=== PATIENT | male | born 1945 | race Caucasian/White ===

== ENCOUNTER 2017-01-29 02:09 | Emergency (ER) | payer MEDICARE ==
[2017-01-29] MEDS ORDERED: NS 0.9% 1000 ML* 1,000 ML IV ONE (02:44)
--- NOTE | 2017-01-29 03:14 | ED ---
Jeffrey Lauren SooYoung, scribed for Jose Leroy MD on 01/29/17 at 0314 . Abdominal Pain/Male - HPI Summary HPI Summary: A 71 y/o M presents to ED with c/o sharp abd pain onset two nights ago. Associated sx: fever of 101.5 F, n/d, black/tarry stools onset two days ago, bright red melena today. He states feeling better yesterday, he was able to go to work, but abd pain returned today. Pt took Pepto and Immodium. He notes have a similar occurrence about 25 years ago, and was admitted, but cause is unknown , possibly due to raw hamburger. He did eat hamburger three days ago. also ate hamburger, but has no symptoms. Pt's last colonoscopy was approx. 10 years ago. Pt has been under recent stress. Took tylenol at 1500. Had castro grupo SOLAR ENERGY TECHNICIAN. - History of Current Complaint Chief Complaint: EDAbdPain Stated Complaint: STOMACH CRAMPS/BLOODY STOOL Time Seen by Provider: 01/29/17 02:36 Hx Obtained From: Patient, Family/Stage Builder Onset/Duration: Gradual Onset, Lasting Days, Still Present Timing: Constant Severity Initially: Moderate Severity Currently: Moderate Pain Intensity: 8 Pain Scale Used: 0-10 Numeric Location: Diffuse Associated Signs And Symptoms: Positive: Fever, Blood in Stool, Nausea, Diarrhea , Other - pos: tarry stools. Negative: Vomiting - Allergies/Home Medications Allergies/Adverse Reactions: Allergies Allergy/AdvReac Type Severity Reaction Status Date / Time No Known Allergies Allergy Verified 04/10/15 10:03 PMH/Surg Hx/FS Hx/Imm Hx Previously Healthy: No Endocrine/Hematology History: Reports: Hx Thyroid Disease - HYPO Cardiovascular History: Reports: Hx Hypertension History: Reports: Hx Kidney Stones - BILAT Musculoskeletal History: Reports: Hx Arthritis - LEFT HIP Sensory History: Reports: Hx Contacts or Glasses - READING GLASSES Denies: Hx Hearing Aid Opthamlomology History: Reports: Hx Contacts or Glasses - READING GLASSES - Surgical History Surgery Procedure, Year, and Place: LITHOTRIPSY X3 2002, 2005, 2007. CYSTO 2011 [facility] [place]. HERNIA REPAIR RIGHT 1970. TONSILLECTOMY 1971. BASAL CELL REMOVAL LEFT HAND Hx Anesthesia Reactions: No Infectious Disease History: No Infectious Disease History: Denies: Traveled Outside the [place] in Last 30 Days - Family History Known Family History: Positive: Other - neg: anaesthesia reaction - Social History Occupation: Employed Full-time Lives: With Family Alcohol Use: Daily Alcohol Amount: 1 GLASS/WINE Hx Substance Use: No Substance Use Type: Reports: None Hx Tobacco Use: Yes Smoking Status (MU): Former Smoker Type: Pipe Amount Used/How Often: FORMER PIPE SMOKER Have You Smoked in the Last Year: No Review of Systems Positive: Fever Positive: Abdominal Pain, Diarrhea, Nausea, Other - pos: tarry stools; melena. Negative: Vomiting All Other Systems Reviewed And Are Negative: Yes Physical Exam Triage Information Reviewed: Yes Vital Signs On Initial Exam: Initial Vitals Temp Pulse Resp BP Pulse Ox 101 F 86 18 153/67 96 01/29/17 02:11 01/29/17 02:11 01/29/17 02:11 01/29/17 02:11 01/29/17 02:11 Vital Signs Reviewed: Yes Appearance: Positive: Well-Appearing, Pain Distress - mild discomfort Skin: Positive: Warm Head/Face: Positive: Normal Head/Face Inspection Eyes: Positive: KAYLA ENT: Positive: Hearing grossly normal Neck: Positive: Supple Respiratory/Lung Sounds: Positive: Breath Sounds Present Cardiovascular: Positive: RRR Abdomen Description: Positive: Soft, Other: - mild diffuse lower abd tendserness. Negative: No Organomegaly, Distended, Guarding Bowel Sounds: Positive: Present Musculoskeletal: Positive: Strength/ROM Intact Neurological: Positive: Alert, Oriented to Person Place, Time Psychiatric: Positive: Affect/Mood Appropriate Diagnostics - Vital Signs Vital Signs Temp Pulse Resp BP Pulse Ox 01/29/17 02:11 101 F 86 18 153/67 96 - Laboratory Result Diagrams: 01/29/17 03:00 01/29/17 03:00 Lab Statement: Any lab studies that have been ordered have been reviewed, and results considered in the medical decision making process. - CT ABD/PEL CT CT Interpretation: Positive (See Comments) - IMPRESSION: Findings consistent with colitis involving the ascending and transverse colon predominantly with questionable involvement of the terminal ileum. These findings are consistent with ileocolitis. CT Interpretation Completed By: Radiologist Re-Evaluation - Re-Evaluation 1 Re-Evaluation Time: 05:16 Change: Improved Comment: Discussing lab and CT results with pt. Abdominal Pain Fem Course/Dx - Course Course Of Treatment: Pt is a 71 y/o M presenting with sharp abd pain onset two nights ago. Associated sx: fever of 101.5 F, n/d, black/tarry stools onset two days ago, bright red melena today. He states feeling better yesterday, he was able to go to work, but abd pain returned today. Pt took Pepto and Immodium. He notes have a similar occurrence about 25 years ago, and was admitted, but cause is unknown, possibly due to raw hamburger. He did eat hamburger three days ago. also ate hamburger, but has no symptoms. Pt's last colonoscopy was approx. 10 years ago. Pt has been under recent stress. Took tylenol at 1500. Had castro grupo SOLAR ENERGY TECHNICIAN. Pt given fuids in ED. Lactic acid is 2.8. INR is 1.13. CRP is 29.04. UA is nml except 1+ blood. A/P CT shows "Findings consistent with colitis involving the ascending and transverse colon predominantly with questionable involvement of the terminal ileum. These findings are consistent with ileocolitis.". Will D/C pt home with Imodium to f/u with GI. - Diagnoses Provider Diagnoses: Colitis Discharge - Discharge Plan Condition: Improved Disposition: HOME Prescriptions: Loperamide CAP* [Imodium CAP*] 2 mg PO Q4H #20 cap Patient Education Materials: Loperamide (By mouth), Colitis (ED) Referrals: Carmelo Mckeon MD [Primary Care Provider] - Sven Banda MD [Medical Doctor] - 1 Day Additional Instructions: Follow up with Dr. Banda, GI, today. Please return to the ED if you experience new or worsening symptoms. The documentation as recorded by the Jeffrey thompson SooYoung accurately reflects the service I personally performed and the decisions made by me, Jose Leroy MD.
[2017-01-29 03:16] LABS: Hematocrit 35 % (42-52); Hemoglobin 12.3 g/dl (14.0-18.0); Mean Corpuscular HGB Conc 35 g/dl (31-36); Mean Corpuscular Hemoglobin 36 pg (27-31); Mean Corpuscular Volume 101 fL (80-94); Mean Platelet Volume 7 um3 (7.4-10.4); Red Blood Count 3.48 10^6/ul (4.0-5.4); Red Cell Distribution Width 14 % (10.5-15); White Blood Count 7.4 10^3/ul (3.5-10.8)
[2017-01-29 03:23] LABS: Add Diff/Slide Review? Slide Review Added; Comments Flag Yes
[2017-01-29 03:27] LABS: Albumin 4.2 g/dL (3.2-5.2); BUN/Creatinine Ratio 19.4 (8-20); C Reactive Protein 29.04 mg/L (< 5.00); Calcium 8.7 mg/dL (8.6-10.3); EGFR African American 86.7 (>60); EGFR Non-African American 67.4 (>60); Globulin 2.2 g/dL (2-4); Magnesium 1.8 mg/dL (1.9-2.7); Potassium 3.3 mmol/L (3.5-5.0); Total Bilirubin 1.1 mg/dL (0.2-1.0); Total Protein 6.4 g/dL (6.4-8.9)
[2017-01-29] MEDS ORDERED: Iohexol 300* (CONTRAST) 10 ML SDV IV ONE (04:11)
[2017-01-29 04:28] VITALS: BP 130/61
[2017-01-29 04:33] LABS: Urine Bacteria Absent (Absent); Urine Bilirubin Negative (Negative); Urine Glucose Negative (Negative); Urine Nitrite Negative (Negative)
--- NOTE | 2017-01-29 08:02 | RAD ---
INDICATION: Abdominal pain. GI bleed. COMPARISON: CT urogram a 2010 TECHNIQUE: Axial source images were obtained from the hemidiaphragms to the symphysis pubis following administration of oral and intravenous contrast. 115 mL Omnipaque 300 was utilized. Coronal and sagittal reconstructed images were acquired. Lung bases: The lung bases are clear. Liver: The liver is normal in size. There are no masses. There is no ductal dilatation. Gallbladder: There are no calcified gallstones. There is no evidence of wall thickening or pericholecystic fluid. Spleen: The spleen is normal in size. There are no masses. Pancreas: There is no focal pancreatic mass or ductal dilatation. Adrenal glands: There is no evidence of adrenal mass. Kidneys: The kidneys are normal in size and position. There are prompt nephrograms and there is prompt excretion bilaterally. There are no renal parenchymal masses. There are nonobstructive renal calculi and lower poles of each kidney. Adenopathy: There is no evidence of adenopathy by size criteria. Fluid collections: Mild stranding of the mesenteric fat most prominent near the hepatic flexure. Vessels:There are no significant atherosclerotic changes involving the aorta. There is no focal aneurysm. The iliac vessels are normal in caliber. The IVC appears normal. GI tract: The upper GI tract is unremarkable with exception that there may be mild mucosal thickening of the terminal ileum. There is mild mucosal thickening of the descending and transverse colon. There is no significant mucosal thickening of the descending or sigmoid colon. There are scattered diverticula of the sigmoid colon but there is no CT evidence of diverticulitis. There is no obstruction. There is no pneumatosis.. Pelvic organs: Limited evaluation due to beam hardening artifact from left hip arthroplasty. Bladder: Mildly limited evaluation due to beam hardening artifact from left hip arthroplasty. No abnormalities are identified.. Abdominal and pelvic soft tissues: Small bilateral fat-containing inguinal hernias.. Osseous structures: There are no acute osseous findings. Left hip arthroplasty. Moderate degenerative disease L5-S1. Moderate spurring of the lower thoracic spine. Other: None IMPRESSION: 1. SUSPECT MILD ILEOCOLITIS. 2. BILATERAL NONOBSTRUCTIVE RENAL CALCULI.
== END 2017-01-29 05:44 | disposition home or self-care (01) ==
LOC: ED 02:09
DX: K52.9 Noninfective gastroenteritis and colitis, unspecified (principal); R50.9 Fever, unspecified; K92.1 Melena; R11.0 Nausea; R19.7 Diarrhea, unspecified; Z87.891 Personal history of nicotine dependence
CPT/HCPCS: 36415; 74177; 80053; 81003; 81015; 83605; 83690; 83735; 85025; 85610; 86140; 99283; Q9967

== ENCOUNTER 2017-01-29 11:20 | Inpatient (IN) | payer MEDICARE ==
[2017-01-29] MEDS ORDERED: NS 0.9% 1000 ML* 2,000 ML IV ONE (12:39)
[2017-01-29] MEDS ORDERED: Acetaminophen TAB* 325 MG PO ONE (13:02)
[2017-01-29 13:18] LABS: Hematocrit 33 % (42-52); Hemoglobin 11.8 g/dl (14.0-18.0); Mean Corpuscular HGB Conc 35 g/dl (31-36); Mean Corpuscular Hemoglobin 35 pg (27-31); Mean Corpuscular Volume 100 fL (80-94); Mean Platelet Volume 7 um3 (7.4-10.4); Red Blood Count 3.33 10^6/ul (4.0-5.4); Red Cell Distribution Width 14 % (10.5-15); White Blood Count 7.9 10^3/ul (3.5-10.8)
[2017-01-29 13:32] LABS: BUN/Creatinine Ratio 14.8 (8-20); C Reactive Protein 35.79 mg/L (< 5.00); Calcium 8.8 mg/dL (8.6-10.3); EGFR African American 80.6 (>60); EGFR Non-African American 62.7 (>60); Globulin 2.1 g/dL (2-4); Potassium 3.4 mmol/L (3.5-5.0); Total Bilirubin 1.5 mg/dL (0.2-1.0); Total Protein 6.1 g/dL (6.4-8.9)
[2017-01-29] MEDS ORDERED: Ondansetron INJ* 2 MG/ML VIAL IV PRN (14:45)
[2017-01-29] MEDS ORDERED: KCL 20 MEQ/100 ML IVPREMIX* 20 MEQ/100 ML BAG IV ONE (14:52)
--- NOTE | 2017-01-29 15:23 | ED ---
Denis Lauren Angela, scribed for Kevin Brown MD on 01/29/17 at 1208 . Abdominal Pain/Male - HPI Summary HPI Summary: 71 y/o male presents to the ED c/o fever, fatigue, abd pain, and diarrhea that started at 1:00 AM 2 ago on Thursday. Pt reports his pain started in the upper abdomen and now is more diffuse. He also states feeling nauseous but denies vomiting. Pt notes black stools 2 days ago with blood last night and today. He states that diarrhea started after the onset of his abd pain. Pt reports having 3 bowel movements today with quite of bit of blood. Pt notes 20 years ago he had similar symptoms from eating a hamburger, was told he had E. coli. Pt endorses light-headedness and myalgia, but denies urinary symptoms and any recent antibiotics. Per pt's , pt has been under a lot of stress recently. Pt is currently on levothyroxine, hydrochlorothiazide, loperamide, and baby ASA. - History of Current Complaint Chief Complaint: EDAbdPain Stated Complaint: SENT BY DR WALLACE Time Seen by Provider: 01/29/17 11:56 Hx Obtained From: Patient, Family/Signal Tower Director - Onset/Duration: Gradual Onset Timing: Constant Pain Intensity: 8 Location: Diffuse Radiates: No Aggravating Factor(s): Nothing Alleviating Factor(s): Nothing Associated Signs And Symptoms: Positive: Fever, Blood in Stool, Nausea, Diarrhea. Negative: Urinary Symptoms, Vomiting - Allergies/Home Medications Allergies/Adverse Reactions: Allergies Allergy/AdvReac Type Severity Reaction Status Date / Time Bee Venom Allergy Hives Verified 01/29/17 11:47 PMH/Surg Hx/FS Hx/Imm Hx Endocrine/Hematology History: Reports: Hx Thyroid Disease - HYPO Denies: Hx Diabetes Cardiovascular History: Reports: Hx Hypertension History: Reports: Hx Kidney Stones - BILAT Denies: Hx Dialysis, Hx Renal Disease Musculoskeletal History: Reports: Hx Arthritis - LEFT HIP Sensory History: Reports: Hx Contacts or Glasses - READING GLASSES Denies: Hx Hearing Aid Opthamlomology History: Reports: Hx Contacts or Glasses - READING GLASSES - Cancer History Cancer Type, 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 CYSTO 2010 [facility] [place]. HERNIA REPAIR RIGHT 1969. TONSILLECTOMY 1970. BASAL CELL REMOVAL LEFT HAND Hx Anesthesia Reactions: No Infectious Disease History: Denies: Traveled Outside the US in Last 30 Days - Family History Known Family History: Positive: Other - neg: anaesthesia reaction - Social History Alcohol Use: Daily Alcohol Amount: 1 GLASS/WINE Hx Substance Use: No Substance Use Type: Reports: None Hx Tobacco Use: Yes Smoking Status (MU): Former Smoker Type: Pipe Amount Used/How Often: FORMER PIPE SMOKER Have You Smoked in the Last Year: No Review of Systems Positive: Fever, Fatigue Positive: Abdominal Pain, Diarrhea, Nausea. Negative: Vomiting Positive: Myalgia, Other - NEGATIVE: urinary symptoms All Other Systems Reviewed And Are Negative: Yes Physical Exam - Summary Physical Exam Summary: General: mild ill-appearing, no pain distress Skin: warm, color reflects adequate perfusion, dry Head: normal Eyes: EOMI, KAYLA ENT: normal, oral mucosa dry Neck: supple, nontender Respiratory: CTA, breath sounds present Cardiovascular: RRR Abdomen: soft, mild diffuse tenderness in the abd more in the epigastric area. Bowel: hypoactive bowel sounds Musculoskeletal: normal, strength/ROM intact Neurological: normal, sensory/motor intact, A&O x3 Psychological: affect/mood appropriate Triage Information Reviewed: Yes Vital Signs On Initial Exam: Initial Vitals Temp Pulse Resp BP Pulse Ox 97.8 F 77 19 110/69 98 01/29/17 11:43 01/29/17 11:43 01/29/17 11:43 01/29/17 11:43 01/29/17 11:43 Vital Signs Reviewed: Yes Diagnostics - Vital Signs Vital Signs Temp Pulse Resp BP Pulse Ox 01/29/17 11:43 97.8 F 77 19 110/69 98 - Laboratory Lab Results: Lab Results 01/29/17 01/29/17 01/29/17 Range/Units 13:00 13:00 13:00 WBC 7.9 (3.5-10.8) 10^3/ul RBC 3.33 L (4.0-5.4) 10^6/ul Hgb 11.8 L (14.0-18.0) g/dl Hct 33 L (42-52) % MCV 100 H (80-94) fL MCH 35 H (27-31) pg MCHC 35 (31-36) g/dl RDW 14 (10.5-15) % Plt Count 173 (150-450) 10^3/ul MPV 7 L (7.4-10.4) um3 Neut % (Auto) 87.0 H (38-83) % Lymph % (Auto) 6.9 L (25-47) % Desha % (Auto) 5.9 (1-9) % Eos % (Auto) 0 (0-6) % Baso % (Auto) 0.2 (0-2) % Absolute Neuts (auto) 6.9 (1.5-7.7) 10^3/ul Absolute Lymphs (auto) 0.5 L (1.0-4.8) 10^3/ul Absolute Monos (auto) 0.5 (0-0.8) 10^3/ul Absolute Eos (auto) 0 (0-0.6) 10^3/ul Absolute Basos (auto) 0 (0-0.2) 10^3/ul Absolute Nucleated RBC 0 10^3/ul Nucleated RBC % 0 INR (Anticoag Therapy) 1.18 H (0.89-1.11) APTT 30.0 (26.0-36.3) seconds Sodium 131 L (133-145) mmol/L Potassium 3.4 L (3.5-5.0) mmol/L Chloride 101 (101-111) mmol/L Carbon Dioxide 23 (22-32) mmol/L Anion Gap 7 (2-11) mmol/L BUN 17 (6-24) mg/dL Creatinine 1.15 (0.67-1.17) mg/dL Est GFR ( Amer) 80.6 (>60) Est GFR (Non-Af Amer) 62.7 (>60) BUN/Creatinine Ratio 14.8 (8-20) Glucose 114 H (70-100) mg/dL Lactic Acid (0.5-2.0) mmol/L Calcium 8.8 (8.6-10.3) mg/dL Total Bilirubin 1.50 H (0.2-1.0) mg/dL AST 20 (13-39) U/L ALT 14 (7-52) U/L Alkaline Phosphatase 55 (34-104) U/L C-Reactive Protein 35.79 H (< 5.00) mg/L Total Protein 6.1 L (6.4-8.9) g/dL Albumin 4.0 (3.2-5.2) g/dL Globulin 2.1 (2-4) g/dL Albumin/Globulin Ratio 1.9 (1-3) Lipase 14 (11.0-82.0) U/L 01/29/17 Range/Units 13:00 WBC (3.5-10.8) 10^3/ul RBC (4.0-5.4) 10^6/ul Hgb (14.0-18.0) g/dl Hct (42-52) % MCV (80-94) fL MCH (27-31) pg MCHC (31-36) g/dl RDW (10.5-15) % Plt Count (150-450) 10^3/ul MPV (7.4-10.4) um3 Neut % (Auto) (38-83) % Lymph % (Auto) (25-47) % Desha % (Auto) (1-9) % Eos % (Auto) (0-6) % Baso % (Auto) (0-2) % Absolute Neuts (auto) (1.5-7.7) 10^3/ul Absolute Lymphs (auto) (1.0-4.8) 10^3/ul Absolute Monos (auto) (0-0.8) 10^3/ul Absolute Eos (auto) (0-0.6) 10^3/ul Absolute Basos (auto) (0-0.2) 10^3/ul Absolute Nucleated RBC 10^3/ul Nucleated RBC % INR (Anticoag Therapy) (0.89-1.11) APTT (26.0-36.3) seconds Sodium (133-145) mmol/L Potassium (3.5-5.0) mmol/L Chloride (101-111) mmol/L Carbon Dioxide (22-32) mmol/L Anion Gap (2-11) mmol/L BUN (6-24) mg/dL Creatinine (0.67-1.17) mg/dL Est GFR ( Amer) (>60) Est GFR (Non-Af Amer) (>60) BUN/Creatinine Ratio (8-20) Glucose (70-100) mg/dL Lactic Acid 1.5 (0.5-2.0) mmol/L Calcium (8.6-10.3) mg/dL Total Bilirubin (0.2-1.0) mg/dL AST (13-39) U/L ALT (7-52) U/L Alkaline Phosphatase (34-104) U/L C-Reactive Protein (< 5.00) mg/L Total Protein (6.4-8.9) g/dL Albumin (3.2-5.2) g/dL Globulin (2-4) g/dL Albumin/Globulin Ratio (1-3) Lipase (11.0-82.0) U/L Result Diagrams: 01/29/17 13:00 01/29/17 13:00 Lab Statement: Any lab studies that have been ordered have been reviewed, and results considered in the medical decision making process. Abdominal Pain Fem Course/Dx - Course Course Of Treatment: ADMIT HOSPITALIST STABLE. NO CRITICAL CARE TIME. - Diagnoses Provider Diagnoses: Colitis, Fever, Bloody diarrhea Discharge - Discharge Plan Condition: Stable Disposition: ADMITTED TO [facility] Referrals: Carmelo Wallace MD [Primary Care Provider] - The documentation as recorded by the Denis thompson Angela accurately reflects the service I personally performed and the decisions made by , Kevin Brown MD.
[2017-01-29 16:29] LABS: Urine Bacteria Absent (Absent); Urine Bilirubin Negative (Negative); Urine Glucose Negative (Negative); Urine Nitrite Negative (Negative)
[2017-01-29] MEDS: Ciprofloxacin 400MG IVPREMIX(* 400 MG/200 ML BAG IVPB SCH (16:54)
[2017-01-29] MEDS: Loperamide CAP* 2 MG PO PRN (16:57)
[2017-01-29] MEDS ORDERED: metroNIDAZOLE IV 500 MG/100ML* 500 MG/100 ML BAG IVPB SCH (17:30)
--- NOTE | 2017-01-29 18:01 | HP ---
CC: Dr. Mckeon * [facility] MEDICINE HISTORY AND PHYSICAL: DATE OF ADMISSION: 01/29/17 ATTENDING PHYSICIAN: Dr. Stephane Mccallum * (dictation provided by Kenya Cardona NP ). CHIEF COMPLAINT: Left-sided abdominal pain with dark tarry stool and bright red blood per rectum. HISTORY OF PRESENT ILLNESS: Mr. Zavala is a 71-year-old male with past medical history of hypertension and hypothyroidism who presents to the hospital today with the above complaints. He states that he began feeling unwell on Thursday morning at approximately 1 a.m. He woke suddenly with severe stabbing pain in his abdomen. He thereafter developed diarrhea that was at times black with bright red blood. On Thursday he was feeling a bit better but by that evening, he was again feeling very unwell, now with a fever of 102. He was here in the emergency room earlier today, at which time he had hemoglobin 12.3 and an abdomen and pelvis CT showing ileocolitis. The patient was discharged to home with plans to follow up with Gastroenterology. However, since returning home Mr. Zavala continued to feel quite unwell with pain, diarrhea, and fever and therefore return to the ED now. He knows of no sick contacts. He ate a hamburger the evening prior to developing these symptoms but he notes that it was well-cooked and that his (who also ate a hamburger) is not ill. He does note having a prior severe bout of diarrhea with abdominal pain from which he became quite ill, after having a rare hamburger. At this point, Mr. Zavala has the temperature as high as 102.3. He remains tender on the left side of abdomen. He has a hemoglobin of 11.8. He is not tachycardic and his blood pressure is stable. PAST MEDICAL HISTORY: 1. Hypertension. 2. Hypothyroidism. 3. Kidney stones. 4. History of infectious colitis about 10 years ago for which he was in the hospital for 1 week. 5. Last colonoscopy in 2008, negative exam. MEDICATIONS: 1. Aspirin 81 mg p.o. q.a.m. 2. Hydrochlorothiazide 25 mg p.o. q.a.m. 3. Ibuprofen 400 mg p.o. b.i.d. 4. Magnesium glycinate 250 mg p.o. daily. 5. Levothyroxine 75 mcg p.o. q.a.m. 6. Loperamide 2 mg p.o. q. 4 hours p.r.n. 7. Verapamil 180 mg p.o. q.a.m. ALLERGIES: BEE VENOM. FAMILY HISTORY: Reviewed and noncontributory. SOCIAL HISTORY: The patient is a former smoker. He quit in the . He drinks 1 glass of wine per night. He denies any drug use. He lives with his who is the healthcare proxy. REVIEW OF SYSTEMS: A 14-point review of systems was completed with Mr. Zavala today and all those not mentioned above were negative. PHYSICAL EXAMINATION GENERAL: Mr. Zavala is sitting up in the bed. He is in no acute distress. VITAL SIGNS: Temperature max today in the emergency room is 102.3, is currently 99.8, heart rate 72, respiratory rate 15, O2 saturation 96% on room air, blood pressure 124/57. LUNGS: Clear to auscultation bilaterally with no accessory muscle use and good aeration. HEART: S1 and S2. No murmur, rub, or gallop and regular. ABDOMEN: Soft. There is tenderness along the left quadrant from mid abdomen down. There is no rebound or guarding. Bowel sounds are positive. EXTREMITIES: No cyanosis or edema. NEUROLOGIC: He is alert. He is oriented x3. He moves all extremities equally. There is no facial asymmetry or focal weakness. Extraocular movements are intact. SKIN: Intact. LABORATORY DATA: WBC 7.9, hemoglobin 11.8, hematocrit 33, and platelet count 173. INR 1.18. Sodium 131, potassium 3.4, chloride 101, serum bicarbonate 23, BUN 17, creatinine 1.15, glucose 114. CRP 35.79. CT abdomen and pelvis earlier today shows an ileocolitis with mild mucosal thickening of the descending and transverse colon. ASSESSMENT: Mr. Zavala is a 71-year-old male with past medical history of hypertension and hypothyroidism who presents today to the hospital with concern for diarrhea with melena with left-sided abdominal pain as well as fever, found to have likely infectious colitis. Our plans are for observation in the hospital for the followin. Infectious colitis: The patient's imaging, fever, pain, and diarrhea are all consistent with colitis. Fortunately, his blood pressure and heart rate are stable and his kidney function is stable. He has no significant electrolyte abnormalities other than a very mild hypokalemia. Plan to treat with Cipro and Flagyl intravenously until the patient is able to take oral intake consistently. Plan to check stool studies. The patient's H and H are stable, but they have drifted down very slightly. Plan to recheck his labs in the morning unless more profound bleeding is noted. 2. Hypertension. Plan to hold hydrochlorothiazide while he is acutely ill but he will continue on his verapamil as long as his blood pressure remains stable. 3. Aspirin usage: The patient states that he has no particular indication for aspirin and specifically denies a history of coronary artery disease, transient ischemic attack, or cerebrovascular accident. Plan to hold this now in the setting of GI bleeding. 4. Hypothyroidism. Continue levothyroxine. 5. DVT prophylaxis with SCDs. 6. Code status is full code. TIME SPENT: Approximately 60 minutes were spent on the admission of this patient, more than half time spent with the patient at the bedside, performing the physical examination, and reviewing my plan of care. KENYA CARDONA NP [id number]/CPS #: [id number] JUANITA
[2017-01-29] MEDS: Acetaminophen TAB* 325 MG PO PRN (20:18)
[2017-01-29] MEDS: metroNIDAZOLE IV 500 MG/100ML* 500 MG/100 ML BAG IVPB SCH (21:32)
[2017-01-30] MEDS: Ciprofloxacin 400MG IVPREMIX(* 400 MG/200 ML BAG IVPB SCH ×2 (03:40→17:42)
[2017-01-30 04:42] LABS: Hematocrit 29 % (42-52); Hemoglobin 10.2 g/dl (14.0-18.0); Mean Corpuscular HGB Conc 35 g/dl (31-36); Mean Corpuscular Hemoglobin 35 pg (27-31); Mean Corpuscular Volume 100 fL (80-94); Mean Platelet Volume 7 um3 (7.4-10.4); Red Cell Distribution Width 14 % (10.5-15); White Blood Count 5.6 10^3/ul (3.5-10.8)
[2017-01-30 04:43] LABS: Add Diff/Slide Review? Slide Review Added; Comments Flag Yes
[2017-01-30] MEDS: metroNIDAZOLE IV 500 MG/100ML* 500 MG/100 ML BAG IVPB SCH ×3 (05:03→20:58)
[2017-01-30] MEDS: Levothyroxine TAB* 75 MCG TAB PO SCH (06:07)
[2017-01-30 06:16] LABS: Hypochromasia 1+; Immature Granulocytes 19 % (0-9); Macrocytosis 1+; Microcytosis 1+; Neutrophil % 69 % (38-83)
[2017-01-30] MEDS: Verapamil SR CAP* 180 MG PO SCH (08:22)
[2017-01-30] MEDS: Acetaminophen TAB* 325 MG PO PRN ×2 (08:22→21:30)
[2017-01-30] MEDS: Loperamide CAP* 2 MG PO PRN (08:23)
[2017-01-30 09:14] LABS: BUN/Creatinine Ratio 13.4 (8-20); Calcium 8.2 mg/dL (8.6-10.3); EGFR African American 83.1 (>60); EGFR Non-African American 64.6 (>60); Potassium 3.6 mmol/L (3.5-5.0)
--- NOTE | 2017-01-30 10:44 | PN ---
Subjective Date of Service: 01/30/17 Interval History: This is a 71 yo gentleman with HTN and hypothyroidism who presented with c/o abd pain, diarrhea and BRBPR with fever. CT indicative of likely colitis. Cdiff testing negative. Patient has been started on Cipro and Flagyl. This am he reports persistent diarrhea but improved abdominal pain. No further BRBPR. He is tolerating oral intake. No n/o n/v. Objective Active Medications: Acetaminophen (Tylenol Tab*) 650 mg PO Q6H PRN PRN Reason: pain/fever Last Admin: 01/30/17 08:22 Dose: 650 mg Ciprofloxacin/Dextrose (Cipro 400 Mg Ivpremix(*)) 400 mg in 200 mls @ 200 mls/ hr IVPB Q12H [facility] Last Admin: 01/30/17 03:40 Dose: 200 mls/hr Metronidazole/Sodium Chloride (Flagyl 500 Mg Ivpb*) 500 mg in 100 mls @ 100 mls /hr IVPB 0400,1200,2000 [facility] Last Admin: 01/30/17 05:03 Dose: 100 mls/hr Levothyroxine Sodium (Synthroid Tab*) 75 mcg PO DAILY@0600 [facility] Last Admin: 01/30/17 06:07 Dose: 75 mcg Loperamide HCl (Imodium Cap*) 2 mg PO Q4H PRN PRN Reason: DIARRHEA Last Admin: 01/30/17 08:23 Dose: 2 mg Ondansetron HCl (Zofran Inj*) 4 mg IV Q6H PRN PRN Reason: NAUSEA Last Admin: 01/30/17 08:23 Dose: 4 mg Pneumococcal Polyvalent Vaccine (Pneumococcal Vac Polyvalent*) 0.5 ml IM .ONCE ONE Stop: 01/30/17 13:01 Verapamil HCl (Calan Sr Cap*) 180 mg PO QAM [facility] Last Admin: 01/30/17 08:22 Dose: 180 mg Vital Signs: Temp Pulse Resp BP Pulse Ox 99.8 F 57 18 102/41 96 01/30/17 07:18 01/30/17 07:18 01/30/17 08:23 01/30/17 07:18 01/30/17 07:18 Appearance: Mildly ill and fatigued appearing in NAD Cardiovascular: NL Sounds; No Murmurs; No JVD, RRR Abdominal: - - mild TTP LLQ, otherwise soft and BS present Extremities: No Edema Neurological: Alert and Oriented x 3 Result Diagrams: 01/30/17 04:28 01/30/17 08:44 Additional Lab and Data: . Microbiology and Other Data: Microbiology 01/29/17 15:55 Stool Gross Appearance - Final Stool Shiga Toxin I & II - Final Negative Shiga Toxin 1 & 2 Cryptosporidium/Giardia - Final Neg Cryptosporidium/Giardia 01/29/17 15:55 Stool Gross Appearance - Final Stool C. difficile DNA Amplification - Final 027 Presumptive NEGATIVE Toxigenic C.diff NEGATIVE Stool Lactoferrin - Final Stool Occult Blood (DARA) - Final Diagnostic Imaging: CT abd/pelvis - mild ileocolitis Assess/Plan/Problems-Billing Assessment: This is a 71 yo gentleman with HTN and hypothyroidism who presented with c/o diarrhea dn abd pain with evidence of colitis on CT. - Patient Problems (1) Colitis Comment: C diff neg Symptomatic improvement with Cipro and Flagyl but still having freq diarrhea and generalized malaise Will add maintainence fluids and continue current abx (2) HTN (hypertension) Comment: Normotensive HCTZ held and verapamil cont at this time (3) Hypothyroid Comment: Cont levothyroxine (4) Full code status (5) DVT prophylaxis Comment: SCDs Chemical prophylaxis held due to GI bleeding Status and Disposition: Transition to inpatient. Anticipate poss dc home tomorrow.
[2017-01-30] MEDS ORDERED: Pneumococcal Vac Polyvalent* 0.5 ML VIAL IM ONE (13:00)
[2017-01-31] MEDS: metroNIDAZOLE IV 500 MG/100ML* 500 MG/100 ML BAG IVPB SCH (03:34)
[2017-01-31] MEDS: Ciprofloxacin 400MG IVPREMIX(* 400 MG/200 ML BAG IVPB SCH (04:56)
[2017-01-31] MEDS: Levothyroxine TAB* 75 MCG TAB PO SCH (05:00)
[2017-01-31 06:34] LABS: BUN/Creatinine Ratio 15.5 (8-20); Calcium 8.1 mg/dL (8.6-10.3); EGFR African American 91.6 (>60); EGFR Non-African American 71.2 (>60); Potassium 3.6 mmol/L (3.5-5.0)
[2017-01-31 08:12] VITALS: BP 127/66
[2017-01-31] MEDS: Verapamil SR CAP* 180 MG PO SCH (09:39)
--- NOTE | 2017-02-01 03:54 | DS ---
CC: Dr. Mckeon * DISCHARGE SUMMARY: DATE OF ADMISSION: 01/29/17 DATE OF DISCHARGE: 01/31/17 PRIMARY CARE PROVIDER: Dr. Mckeon. DISCHARGING PROVIDER: MERCEDEZ Rush SUPERVISING PHYSICIAN: Dr. Deandre Turpin * (DICTATED BY MERCEDEZ RUSH) PRIMARY DISCHARGE DIAGNOSIS: Salmonella colitis. SECONDARY DISCHARGE DIAGNOSES: 1. Hypertension. 2. Hypothyroidism. DISCHARGE MEDICATIONS: 1. Aspirin 81 mg p.o. daily. 2. Cipro 500 mg p.o. b.i.d. x5 days. 3. Hydrochlorothiazide 25 mg p.o. daily. 4. Levothyroxine 75 mcg p.o. daily. 5. Magnesium glycinate 250 mg p.o. daily. 6. Verapamil 180 mg p.o. daily. Medication change: Cipro x5 days. HOSPITAL IMAGING: CT of the abdomen and pelvis demonstrates what is interpreted as suspected mild ileocolitis. HOSPITAL COURSE: This is a 71-year-old gentleman with history of hypertension and hypothyroidism, who presented with complaints of abdominal pain and frequent watery diarrhea, initially with some blood. The patient's symptoms had started approximately 2 days prior to admission. He reported diarrhea was at times black and on at least one occasion, he noted bright red blood. He had no associated nausea or vomiting but reduced oral intake. At the time of admission, he had no leukocytosis but was febrile in the emergency department with maximum temperature of 102.3 degrees Fahrenheit. He had a CT scan completed earlier in the day, which demonstrated findings consistent with mild colitis and the patient was empirically started on Cipro and Flagyl. Stool sample was subsequently collected, which was negative for C. diff but eventually grew salmonella on culture. The patient's abdominal discomfort improved and his frequency of diarrhea improved and he was able to tolerate enough oral intake to keep up with his losses from diarrhea. He was subsequently discharged to home. DISPOSITION AND FOLLOWUP PLAN: The patient is being discharged to home. Recommended an additional 5 days of Cipro. Recommended maintaining a soft bland diet and holding off on resuming his hydrochlorothiazide until his diarrhea has completely resumed and the same recommendations for his ibuprofen. The patient should follow up with his primary care provider within the next week to ensure full resolution of symptoms. MERCEDEZ RUSH [id number]/[facility] #: [id number] JUANITA
== END 2017-01-31 10:40 | disposition home or self-care (01) | DRG 373 ==
LOC: ED 11:20 → MEDTELE 14:43 → OBSVTOIN 01-30 10:57
PROVIDERS: ADMIT Internal Medicine; ATTEND Internal Medicine
DX: A02.0 Salmonella enteritis (principal); I10 Essential (primary) hypertension; E03.9 Hypothyroidism, unspecified; N20.0 Calculus of kidney; Z79.82 Long term (current) use of aspirin; Z79.1 Long term (current) use of non-steroidal anti-inflammatories (NSAID); Z79.899 Other long term (current) drug therapy; Z91.030 Bee allergy status; Z87.891 Personal history of nicotine dependence; E87.6 Hypokalemia
CPT/HCPCS: 36415; 74177; 80048; 80053; 81003; 81015; 82270; 83605; 83630; 83690; 83735; 84484; 85025; 85610; 85730; 86140; 87040; 87045; 87046; 87077; 87328; 87329; 87493; 87899; 93005; 99283; A9270-GY; G0378; J0744; J2405; J3480; Q9967

== ENCOUNTER 2017-05-11 08:50 | Day surgery (SDC) | payer MEDICARE ==
--- NOTE | 2017-05-08 09:27 | HP ---
CC: Dr. Carmelo Mckeon * ADMITTING HISTORY AND PHYSICAL: DATE OF ADMISSION: 05/11/17 AGE: 71 years, male. ADMITTING DIAGNOSIS: Bilateral renal calculi. PLANNED PROCEDURE: Shockwave lithotripsy of renal calculi (side to be determined based on preoperative x-ray done on 05/11/17 in the a.m.). SURGEON: Dr. Atkins. HISTORY OF PRESENT ILLNESS: Nadir Zavala is a 71-year-old gentleman who has bilateral renal calculi. He will require shockwave lithotripsy of both the right and left side, and this cannot be done simultaneously. So, the plan is for lithotripsy of one of the side depending on which one is better visualized on the preoperative x-ray that morning. PAST MEDICAL HISTORY: Significant for: 1. Hypertension. 2. Hypothyroidism. MEDICATIONS ON ADMISSION: 1. Verapamil 180 mg a day. 2. Hydrochlorothiazide 25 mg a day. 3. Levothyroxine 75 mcg a day. 4. Aspirin, which is currently on hold. ALLERGIES: No known drug allergies. REVIEW OF SYSTEMS: He is otherwise in excellent health. There is no history of diabetes mellitus or any other major systemic illness. He denies any chest pain or shortness of breath. PHYSICAL EXAMINATION GENERAL: Reveals a pleasant, healthy-appearing gentleman. VITAL SIGNS: Blood pressure is 134/86, pulse 62 per minute regular, oxygen saturation 98% on room air, temperature 97.7. LUNGS: Clear bilaterally. CARDIOVASCULAR: Regular rate and rhythm. S1 and S2. ABDOMEN: Soft without masses. DIAGNOSTIC STUDIES/LAB DATA: Renal sonogram revealed an 8-mm calculus in the upper pole of the right kidney and a 6-mm calculus in the mid pole; and, on the left side, a 6.4-mm calculus, and a 9-mm calculus in the lower pole of the left kidney. IMPRESSION: In summary, Ms. Zavala is a 71-year-old gentleman with bilateral renal calculi which have increased in size, and he will require lithotripsy of both the right and left sides. The decision on which side to do first will be made based on his preoperative x-ray. [id number]/[facility] #: [id number] MTDD
[~2017-05-11 08:50] MED LIST: Buffered Lidocaine 0.9% SYRIN* 5 ML/SYR SYRINGE INTRADERM ONE; Famotidine IV* 10 MG/ML 2 ML (20 mg) IV ONE; Metoclopramide TAB* 10 MG PO ONE
[2017-05-11] MEDS ORDERED: Famotidine IV* 10 MG/ML 2 ML (20 mg) ONE (09:10)
[2017-05-11] MEDS ORDERED: Metoclopramide TAB* 10 MG ONE (09:10)
[2017-05-11] MEDS ORDERED: cefTRIAXone(*) 2 GM ADDV.VIAL IVPB ONE (09:10)
[2017-05-11] MEDS ORDERED: Buffered Lidocaine 0.9% SYRIN* 5 ML/SYR SYRINGE ONE (09:10)
[2017-05-11] MEDS ORDERED: Dexamethasone IV* 4 MG/ML 1 ML (4 MG) ONE (09:38)
[2017-05-11] MEDS ORDERED: fentaNYL* 50 MCG/ML 2 ML VIAL (100 MCG VIAL) ONE (09:38)
[2017-05-11] MEDS ORDERED: Ketorolac INJ* 30 MG/ML 1 ML VIAL ONE (09:38)
[2017-05-11] MEDS ORDERED: Propofol* 10 MG/ML 20 ML BTL IV PUSH ONE (09:38)
[2017-05-11] MEDS ORDERED: Ondansetron INJ* 2 MG/ML VIAL ONE (09:38)
[2017-05-11] MEDS ORDERED: KETAMINE HCL* 50 MG/ML 10 ML VIAL ONE ×2 (09:38→11:09)
[2017-05-11] MEDS ORDERED: Lidocaine 2% PF * 5 ML VIAL ONE (09:38)
[2017-05-11] MEDS ORDERED: Midazolam* 1 MG/ML 5 ML VIAL (5 MG) ONE (09:39)
--- NOTE | 2017-05-11 10:02 | RAD ---
HISTORY: Shock wave lithotripsy COMPARISONS: November 28, 2016 VIEWS: Frontal views of the abdomen. FINDINGS: BOWEL: There is a nonspecific bowel gas pattern, with nondilated small bowel gas noted. CALCULI: There are calculi overlying the renal parenchymal shadow as bilaterally, measuring up to 0.5 cm on the left and 0.6 cm on the right. BONES AND SOFT TISSUES: Degenerative changes are noted. The patient is status post left hip arthroplasty. OTHER FINDINGS: The lung bases are clear. There is no subphrenic gas. IMPRESSION: BILATERAL NEPHROLITHIASIS
[2017-05-11] MEDS ORDERED: EPHEDrine (Pressors)* 50 MG/ML VIAL ONE (10:41)
[2017-05-11] MEDS ORDERED: oxyCODONE/Acetamin 5/325 MG* TAB PO PRN (10:52)
[2017-05-11] MEDS ORDERED: fentaNYL* 50 MCG/ML 2 ML VIAL (100 MCG VIAL) IV PRN (10:52)
[2017-05-11] MEDS ORDERED: Ondansetron INJ* 2 MG/ML VIAL IV PRN (10:52)
[2017-05-11 13:28] VITALS: BP 118/66
--- NOTE | 2017-05-11 13:56 | RAD ---
INDICATION: Status post left ESWL COMPARISON: KUB dated May 11, 2017 TECHNIQUE: 2 views the abdomen were obtained. FINDINGS: The 6 mm stone seen overlying the left renal collecting system is not well seen today. The 5 mm calcification overlying the right collecting system is unchanged. There are no new large renal calculi overlying the expected ureters or urinary bladder. IMPRESSION: INTERVAL RESOLUTION OF LEFT COLLECTING SYSTEM CALCULUS.
--- NOTE | 2017-05-12 00:55 | OP ---
CC: Dr. Carmelo Mckeon * DATE OF OPERATION: 05/11/17 - [facility] DATE OF : 45 SURGEON: Trevor Atkins MD ANESTHESIOLOGIST: Andrew Cuba MD ANESTHESIA: General. PRE-OP DIAGNOSIS: Bilateral renal calculi. POST-OP DIAGNOSIS: OPERATIVE PROCEDURE: Shock wave lithotripsy of left renal calculi. INDICATIONS: Nadir Zavala is a 71-year-old gentleman, who is known to have bilateral renal calculi. COMPLICATIONS: None. POSTOPERATIVE CONDITION: Stable. DESCRIPTION OF PROCEDURE: After induction of general anesthesia, the patient was placed in the lithotripsy table in supine position. There were two calculi in the left kidney in the mid to lower pole area. The dominant calculus was localized using fluoroscopy. Shock wave lithotripsy was commenced at the rate of the 90 shocks per minute. There was pause in the lithotripsy for several minutes after about 300 shocks in an effort to minimize any potential trauma to the kidney. Lithotripsy was then resumed and a total of 2400 shocks were administered between the two calculi. The patient tolerated the procedure satisfactorily and was transferred back to the recovery area in stable condition. [id number]/[facility] #: [id number] MTDD
== END 2017-05-11 13:09 | disposition home or self-care (01) ==
LOC: OR 08:50
PROVIDERS: ATTEND Urology
DX: N20.0 Calculus of kidney (principal); I10 Essential (primary) hypertension; E03.9 Hypothyroidism, unspecified; D64.9 Anemia, unspecified; D69.6 Thrombocytopenia, unspecified
CPT/HCPCS: 74000; A9270-GY; J0696; J1100; J1885; J2250; J2405; J2704; J3010

== ENCOUNTER 2023-10-02 05:31 | Observation (INO) ==
[~2023-10-02 05:31] MED LIST changes: -Buffered Lidocaine 0.9% SYRIN* 5 ML/SYR SYRINGE INTRADERM ONE; -Famotidine IV* 10 MG/ML 2 ML (20 mg) IV ONE; -Metoclopramide TAB* 10 MG PO ONE; +Naloxone 0.4 mg VIAL 0.4 mg/ml 1 ml VIAL IV PRN; +Ondansetron 4 mg VIAL 2 MG/ML 2 ml VIAL IV PRN
[2023-10-02] MEDS ORDERED: Tranexamic Acid 1 GM/100ML BAG 2,000 MG/200 ML BAG IV ONE (06:00)
[2023-10-02] MEDS ORDERED: ceFAZolin 2 GM in NS PREMIX 2 GM/100 ML BAG IVPB ONE (06:00)
[2023-10-02 06:09] LABS: INR 1.31 (0.83-1.13)
[2023-10-02 06:20] LABS: Rapid COVID-19 Molecular Undetected (Undetected)
[2023-10-02] MEDS ORDERED: ROPIVACAINE 5 MG/ML 30 ML BTL (0.5%) ONE (06:29)
[2023-10-02] MEDS ORDERED: Lidocaine 2% PF 5 ML VIAL ONE (06:59)
[2023-10-02] MEDS ORDERED: Midazolam 2 mg/2 ml VIAL 1 mg/ml 2 ml VIAL (2 mg) ONE (06:59)
[2023-10-02] MEDS ORDERED: Propofol 10 MG/ML 20 ML BTL ONE (06:59)
[2023-10-02] MEDS ORDERED: Rocuronium 50 mg VIAL 10 mg/ml 5 ml VIAL (50 mg) ONE ×2 (06:59→08:50)
[2023-10-02] MEDS ORDERED: fentaNYL 100 mcg/2 ml 50 MCG/ML VIAL ONE (06:59)
[2023-10-02] MEDS ORDERED: Ondansetron 4 mg VIAL 2 MG/ML 2 ml VIAL ONE (07:58)
[2023-10-02] MEDS ORDERED: Dexamethasone IV 4 MG/ML VIAL 1 ml VIAL ONE (07:58)
[2023-10-02] MEDS ORDERED: Phenylephrine IV 10 MG/ML 1 ml VIAL ONE (08:01)
[2023-10-02] MEDS ORDERED: Glycopyrrolate IV 0.2 MG/ML 1 ML VIAL ONE (08:03)
[2023-10-02] MEDS ORDERED: Ondansetron 4 mg VIAL 2 MG/ML 2 ml VIAL IV PRN (08:36)
[2023-10-02] MEDS ORDERED: Ondansetron ODT 4 mg TAB 4 MG TAB PO PRN (08:36)
[2023-10-02] MEDS ORDERED: Lactulose 30 ml UDC PO PRN (08:36)
[2023-10-02] MEDS ORDERED: Magnesium Hydroxide LIQ 30 ML UDC PO PRN (08:36)
[2023-10-02] MEDS ORDERED: Morphine 2 MG/ML SYRINGE IV PRN (08:36)
[2023-10-02] MEDS ORDERED: ceFAZolin 1 GM ADVAN 1 GM in NS 0.9% 50 ML 50 ML IVPB SCH (09:00)
[2023-10-02] MEDS ORDERED: HYDROmorphone 0.5 MG/0.5 ML SYRINGE ONE (09:54)
[2023-10-02] MEDS ORDERED: Acetaminophen IV 1 GM/100ML 1,000 MG/100 ML BAG IV ONE (10:07)
[2023-10-02] MEDS: Lactated Ringers 1000 ml BAG 1,000 ML IV SCH ×2 (12:21→12:22)
[2023-10-02] MEDS: Buffered Lidocaine 1% SYRIN 1 ml INTRADERM ONE (12:21)
[2023-10-02] MEDS: Magnesium Hydroxide LIQ 30 ML UDC PO SCH (12:22)
[2023-10-02] MEDS: Vitamin THERAPEUTIC TAB PO SCH (12:23)
[2023-10-02 14:46] VITALS: BP 115/64
[2023-10-02] MEDS: ceFAZolin 1 GM ADVAN 1 GM in NS 0.9% 50 ML 50 ML IVPB SCH (16:20)
[2023-10-03] MEDS ORDERED: Potassium Chlor 20 meq TAB.ER PO SCH (09:00)
[2023-10-03] MEDS ORDERED: Tiotropium Brom/Olodaterol MDI (ACUTE) INH SCH (09:00)
== END 2023-10-02 18:20 | disposition home or self-care (01) ==
LOC: OR 05:31 → SSU 05:31
PROVIDERS: ADMIT Orthopaedic Surgery Adult Reconstructive Orthopaedic Surgery; ATTEND Orthopaedic Surgery Adult Reconstructive Orthopaedic Surgery